=== PATIENT | female | born 1995 | race Caucasian/White ===

== ENCOUNTER 2024-03-22 08:55 | Emergency (ER) | payer OTHER ==
[~2024-03-22] VITALS: Ht 160 cm; Wt 63.5 kg
[2024-03-22 09:02] VITALS: BP 96/58; PULSE 100; RESP 16; TEMP 98.6; O2SAT 100
[2024-03-22] MEDS ORDERED: IBUP-2029 MT (09:48)
[2024-03-22] MEDS ORDERED: CEPH500T MT (09:48)
== END 2024-03-22 10:58 | disposition home or self-care (01) ==
LOC: ER 08:55
DX: L02.413 Cutaneous abscess of right upper limb (principal); Z98.890 Other specified postprocedural states
CPT/HCPCS: 76882; 99284; Z7610